=== PATIENT | male | born 1945 | race Caucasian/White ===

== ENCOUNTER 2019-04-29 13:07 | Observation (INO) | payer SELFPAY ==
[~2019-04-29] VITALS: Ht 182.9 cm; Wt 86.9 kg
[2019-04-29 14:01] LABS: BASO # 0.1 (0.0-0.2); BASO % 0.8 % (0.0-2.0); EOS # 0.2 (0.0-0.7); EOS % 2.3 % (0-4.0); GRAN # 4.9 (1.4-6.5); HEMATOCRIT 40.5 % (42.0-52.0); HEMOGLOBIN 13.4 g/dl (13.5-18.0); LYMPH # 1.2 (1.2-3.4); LYMPH % 16.8 % (20.0-51.0); MEAN CELL VOLUME 101 fl (80.0-100.0); MEAN CORPUSCULAR HEMOGLOBIN 33 pg (27.0-31.0); MEAN CORPUSCULAR HGB CONC 33 g/dl (33.0-37.0); MONO # 0.8 (0.1-0.6); MONO % 10.7 % (1.7-9.3); PLATELET COUNT 276 K/mm3 (130-400); RED BLOOD COUNT 4.02 M/mm3 (4.20-5.60); REDCELL DISTRIBUTION WIDTH-CV 14.6 % (11.5-14.5)
[2019-04-29 14:11] LABS: INR 1.3 (0.8-3.0); PROTHROMBIN TIME 15.2 SECONDS (9.7-12.8)
[2019-04-29 14:14] LABS: PARTIAL THROMBOPLASTIN TIME 55.3 SECONDS (26.0-37.0)
[2019-04-29] MEDS ORDERED: CORDARONE200 MG/TAB PO (14:39)
[2019-04-29] MEDS ORDERED: BUMEX 1MG TA1 MG/TA1 PO (14:39)
[2019-04-29] MEDS ORDERED: PLAVIX 75MG TAB75 MG PO (14:40)
[2019-04-29] MEDS ORDERED: VASOTEC 10M10 MG/TAB PO (14:40)
[2019-04-29] MEDS ORDERED: PRADAXA 150MG150 MG PO (14:40)
[2019-04-29] MEDS ORDERED: FLONASEALLERGY NS (14:41)
[2019-04-29] MEDS ORDERED: NITROSTAT0.4 MG/TAB SL (14:42)
[2019-04-29] MEDS ORDERED: ALDACTONE 25MG25 M1 PO (14:42)
[2019-04-29] MEDS ORDERED: VITAMIN FLUSH-F1 CAP (14:43)
[2019-04-29 14:55] LABS: ALANINE AMINOTRANSFERASE 46 U/L (21-72); ALKALINE PHOSPHATASE 43 U/L (50-136); ANION GAP 10 mmol/L (7-16); AST,SGOT 27 U/L (15-37); BILIRUBIN,TOTAL 0.8 mg/dL (0.0-1.0); BLOOD UREA NITROGEN 25 mg/dL (9-20); CARBON DIOXIDE 21 mmol/L (22-30); CHLORIDE 108 mmol/L (98-107); CREATININE, serum 1.15 (0.66-1.25); GLUCOSE 94 mg/dL (74-106); POTASSIUM 4.5 mmol/L (3.4-5.0); SODIUM 139 mmol/L (137-145); TOTAL PROTEIN 7.2 gm/dL (6.4-8.2)
[2019-04-29 15:08] LABS: TROPONIN-I < 0.012 ng/mL (0.000-0.035)
[2019-04-29 20:37] VITALS: BP 96/50; PULSE 69; TEMP 98.6
[2019-04-29 23:08] VITALS: BP 87/44; PULSE 54; TEMP 98
[2019-04-30 03:25] VITALS: BP 91/43; PULSE 55; TEMP 97.9
--- NOTE | 2019-04-30 05:12 | NUR ---
Patient has rested well overnight. No complaints of pain. Telemetry in place per order. Patient is independent in his room and denies needs, call light within reach.
[2019-04-30 07:01] LABS: BASO # 0.1 (0.0-0.2); BASO % 0.8 % (0.0-2.0); EOS # 0.2 (0.0-0.7); EOS % 3.7 % (0-4.0); GRAN # 3.6 (1.4-6.5); GRAN % 60.4 % (42.2-75.2); HEMATOCRIT 42.4 % (42.0-52.0); HEMOGLOBIN 14.1 g/dl (13.5-18.0); LYMPH # 1.3 (1.2-3.4); MEAN CELL VOLUME 100 fl (80.0-100.0); MEAN CORPUSCULAR HEMOGLOBIN 33 pg (27.0-31.0); MEAN CORPUSCULAR HGB CONC 33 g/dl (33.0-37.0); MEAN PLATELET VOLUME 9.9 fl (7.4-10.4); MONO # 0.8 (0.1-0.6); MONO % 13.6 % (1.7-9.3); PLATELET COUNT 265 K/mm3 (130-400); RED BLOOD COUNT 4.24 M/mm3 (4.20-5.60); REDCELL DISTRIBUTION WIDTH-CV 14.6 % (11.5-14.5)
[2019-04-30 07:18] LABS: ALANINE AMINOTRANSFERASE 48 U/L (21-72); ALBUMIN 4.1 gm/dL (3.5-5.0); ALKALINE PHOSPHATASE 48 U/L (50-136); ANION GAP 12 mmol/L (7-16); AST,SGOT 29 U/L (15-37); BILIRUBIN,TOTAL 0.9 mg/dL (0.0-1.0); BLOOD UREA NITROGEN 23 mg/dL (9-20); CALCIUM 8.9 mg/dL (8.4-10.2); CARBON DIOXIDE 21 mmol/L (22-30); CHLORIDE 107 mmol/L (98-107); CREATININE, serum 1.04 (0.66-1.25); GLUCOSE 91 mg/dL (74-106); POTASSIUM 4.7 mmol/L (3.4-5.0); SODIUM 140 mmol/L (137-145); TOTAL PROTEIN 7.4 gm/dL (6.4-8.2)
[2019-04-30 07:36] LABS: TROPONIN-I < 0.012 ng/mL (0.000-0.035)
[2019-04-30 08:30] VITALS: BP 96/56; PULSE 107; TEMP 97.4
--- NOTE | 2019-04-30 08:30 | NUR ---
Cardiology rounded. Medication list reviewed & vitals discussed, He was at bedside for ekg to be completed & echo already done this am. He did well for breakfast & am meds given per cardiology.
--- NOTE | 2019-04-30 10:35 | NUR ---
Patient up independendly ambulating the halls, he denies feeling dizzy or lightheaded. He is going to shave, he is aware he need to be careful, with blood thinners on board. Hospitalist have rounded
[2019-04-30 11:52] VITALS: BP 100/60; PULSE 54; TEMP 97.7
--- NOTE | 2019-04-30 12:25 | NUR ---
Initial visit; Patient thanked Executive Services Administrator for looking in on him and offering God's blessings.
--- NOTE | 2019-04-30 13:12 | NUR ---
MANINDER met with the patient to discuss discharge plan. The patient lives in [place] with his , Mariel. He states that him and his were in [facility] family. He reports independence with ADLs and states he has a scooter, but does not use it. The patient's primary care provider is Narciso [facility] at the [facility] and he [facility] at the [facility]. He reports no difficulties obtaining his meds. The patient does not have advanced directives, but he was interested in obtaining a form for DPOA-HC. MANINDER provided. The patient plans to return back to his families house in [place], before returning back to [place]. No additional needs at this time.
--- NOTE | 2019-04-30 14:41 | NUR ---
Patient continues to be independent. He did well with lunch. Tele on, remains tachy. hypotension the same. Family has been at bedside.
--- NOTE | 2019-04-30 15:54 | NUR ---
patient in bed watching tv. alert and oriented x4. reports to have 'no pain at all.' ambulated to nurses station from room to request a pen. reports no further needs at this time.
--- NOTE | 2019-04-30 16:05 | NUR ---
The patient completed DPOA-HC. He designated his and his daughter, Que Rosen. SW and SWMarquita, witnessed the patient's signature. The patient was provided with the original and some copies. A copy was placed in the patient's chart.
[2019-04-30 16:15] VITALS: BP 108/76; PULSE 52; TEMP 97.6
[2019-04-30 19:55] VITALS: BP 105/63; PULSE 107; TEMP 97.4
--- NOTE | 2019-04-30 20:00 | NUR ---
Report received-assumed care for mini shifter. Assessment complete. VS stable. Blood pressure of 105/63-discussed HS meds-due to low blood pressure agreed to hold off on metoprolol. Continues to be tachycardic. States he can tell when his blood pressure is elevated and will let this nurse know stating he has "bottomed out before and doesnt want to take it tonight." Denies N/V, shortness of air or pain-including chest pain. Has been up ambulating in the hallway. Denies any other questions or concerns. Encouraged to call for needs. WIll monitor.
[2019-04-30 23:47] VITALS: BP 105/50; PULSE 80; TEMP 97.5
[2019-05-01 04:47] VITALS: BP 106/60; PULSE 67; TEMP 98.1
[2019-05-01 06:52] LABS: BASO # 0.1 (0.0-0.2); BASO % 1.1 % (0.0-2.0); EOS # 0.3 (0.0-0.7); EOS % 4.2 % (0-4.0); GRAN # 3.8 (1.4-6.5); GRAN % 59.9 % (42.2-75.2); HEMATOCRIT 45.4 % (42.0-52.0); HEMOGLOBIN 15.3 g/dl (13.5-18.0); LYMPH # 1.3 (1.2-3.4); LYMPH % 20.9 % (20.0-51.0); MEAN CELL VOLUME 99 fl (80.0-100.0); MEAN CORPUSCULAR HEMOGLOBIN 34 pg (27.0-31.0); MEAN CORPUSCULAR HGB CONC 34 g/dl (33.0-37.0); MEAN PLATELET VOLUME 10.1 fl (7.4-10.4); MONO # 0.9 (0.1-0.6); MONO % 13.3 % (1.7-9.3); PLATELET COUNT 256 K/mm3 (130-400); RED BLOOD COUNT 4.57 M/mm3 (4.20-5.60); REDCELL DISTRIBUTION WIDTH-CV 14.5 % (11.5-14.5)
[2019-05-01 07:11] LABS: CALCIUM 9.2 mg/dL (8.4-10.2); CREATININE, serum 1.14 (0.66-1.25); POTASSIUM 4.6 mmol/L (3.4-5.0)
--- NOTE | 2019-05-01 07:15 | NUR ---
Report given to EMPERATRIZ Durant and Meghan AWAN
[2019-05-01 07:43] VITALS: BP 112/68; PULSE 100; TEMP 98
[2019-05-01 12:19] VITALS: BP 100/69; PULSE 75; TEMP 97.6
[2019-05-01] MEDS ORDERED: CORDARONE200 MG/TAB PO ×2 (13:20→13:26)
[2019-05-01] MEDS ORDERED: TOPROL XL200 MG PO ×2 (13:20→13:28)
[2019-05-01] MEDS ORDERED: TOPROL XL100 MG PO (13:26)
--- NOTE | 2019-05-01 14:34 | NUR ---
Discharge instructions reviewed with patient and spouse, verbalized understanding. Discharged ambulatory to auto/home with spouse at 1435.
== END 2019-05-01 14:35 | disposition home or self-care (01) ==
LOC: COL.ER 13:07 → JCC 17:52 → SURG 17:52 → JCC 20:07
PROVIDERS: Family Medicine; Nurse Practitioner; Physician Assistant; ADMIT Student in an Organized Health Care Education/Training Program
DX: R07.9 Chest pain, unspecified (principal); I48.91 Unspecified atrial fibrillation; I95.9 Hypotension, unspecified; E78.5 Hyperlipidemia, unspecified; I11.0 Hypertensive heart disease with heart failure; I50.30 Unspecified diastolic (congestive) heart failure; I25.10 Atherosclerotic heart disease of native coronary artery without angina pectoris; Z87.891 Personal history of nicotine dependence; I08.1 Rheumatic disorders of both mitral and tricuspid valves; I77.819 Aortic ectasia, unspecified site; F41.9 Anxiety disorder, unspecified; Z90.49 Acquired absence of other specified parts of digestive tract; Z79.02 Long term (current) use of antithrombotics/antiplatelets; Z79.52 Long term (current) use of systemic steroids; Z79.01 Long term (current) use of anticoagulants; Z95.1 Presence of aortocoronary bypass graft; Z95.0 Presence of cardiac pacemaker; Z88.8 Allergy status to other drugs, medicaments and biological substances
CPT/HCPCS: 99232-AI; 99239; G0378